=== PATIENT | female | born 1975 | race Caucasian/White ===

== ENCOUNTER → 2018-10-11 | Emergency (ER) | payer OTHER ==
[~2018-10-11] VITALS: Ht 152.4 cm; Wt 68.0 kg
[~2018-10-11] MED LIST: BACTRIM DS TAB1 EACH PO; URIN D.S. TABL1 EACH PO
== END | disposition home or self-care (01) ==
LOC: ER 22:06
DX: N39.0 Urinary tract infection, site not specified (principal)

== ENCOUNTER 2020-08-13 15:46 | Emergency (ER) | payer OTHER ==
[~2020-08-13] VITALS: Ht 152.4 cm; Wt 68.0 kg
[2020-08-13] MEDS ORDERED: LAMOTRIGINE25 MG (15:54)
[2020-08-13] MEDS ORDERED: MEDROLPACK PO (18:03)
[2020-08-13] MEDS ORDERED: BENADRYL25 MG PO (18:03)
== END 2020-08-13 18:36 | disposition home or self-care (01) ==
LOC: ER 15:46
DX: T78.2XXA Anaphylactic shock, unspecified, initial encounter (principal)

== ENCOUNTER 2021-10-28 06:03 | Emergency (ER) | payer OTHER ==
[~2021-10-28] VITALS: Ht 152.4 cm; Wt 72.6 kg
[~2021-10-28 06:03] MED LIST changes: +BENADRYL25 MG PO; +LAMOTRIGINE25 MG; +MEDROLPACK PO
[2021-10-28] MEDS ORDERED: RELAFEN DS1000 MG PO (06:18)
[2021-10-28] MEDS ORDERED: ALLERGY RELIEF180 MG PO (06:18)
[2021-10-28] MEDS ORDERED: MEDROLPACK PO (10:44)
[2021-10-28] MEDS ORDERED: ZYRTEC10 M3 PO (10:44)
[2021-10-28] MEDS ORDERED: ATARAX25 MG PO (10:44)
== END 2021-10-28 10:51 | disposition home or self-care (01) ==
LOC: ER 06:03
DX: R21 Rash and other nonspecific skin eruption (principal); Z20.822 Contact with and (suspected) exposure to COVID-19

== ENCOUNTER → 2022-12-11 | Outpatient (CLI) | payer OTHER ==
[~2022-12-11] MED LIST changes: +ALLERGY RELIEF180 MG PO; +ATARAX25 MG PO; +RELAFEN DS1000 MG PO; +ZYRTEC10 M3 PO
== END | disposition home or self-care (01) ==
LOC: MRI 12-10 11:38
PROVIDERS: ATTEND Orthopaedic Surgery
DX: S83.200A Bucket-handle tear of unspecified meniscus, current injury, right knee, initial encounter (principal); M25.561 Pain in right knee; M25.562 Pain in left knee; M19.90 Unspecified osteoarthritis, unspecified site
CPT/HCPCS: 73721